=== PATIENT | female | born 1960 | race African-American/Black ===

== ENCOUNTER → 2016-10-02 | Outpatient (CLI) | payer MEDICARE, MEDICAID ==
[~2016-10-02] VITALS: Ht 162.6 cm; Wt 65.0 kg
[~2016-10-02] MED LIST: ASPI-556 PO; ATOR10TA84 PO; BUDE10.2 IH; FLUT12AE7 IH; HYDR25TA PO; IPRA4AER IH; IPRNEB IH; LOSA50TA37 PO; MONT10TA21 PO; OMEG1CAP12 PO; PRED10 PO
[2016-10-02 11:38] VITALS: BP 146/89
== END | disposition home or self-care (01) ==
LOC: SRCNTR 11:31
PROVIDERS: ATTEND Internal Medicine Critical Care Medicine
DX: J44.1 Chronic obstructive pulmonary disease with (acute) exacerbation (principal); I10 Essential (primary) hypertension; F17.210 Nicotine dependence, cigarettes, uncomplicated
CPT/HCPCS: G0463

== ENCOUNTER 2016-12-09 20:28 | Inpatient (IN) | payer MEDICARE, MEDICAID ==
[~2016-12-09] VITALS: Ht 162.6 cm; Wt 64.3 kg
[~2016-12-09 20:28] MED LIST changes: -FLUT12AE7 IH; -IPRNEB IH
[2016-12-09] MEDS ORDERED: FLUT12AE7 IH (21:10)
[2016-12-09] MEDS ORDERED: IPRATROPIUM BROMIDE 0.5 MG/2.5 ML NEB SOLUTION NEB ONE ×2 (21:15→22:00)
[2016-12-09] MEDS ORDERED: ALBUTEROL SULFATE 2.5 MG/0.5 ML NEB SOLUTION NEB ONE (21:15)
[2016-12-09] MEDS ORDERED: ALBUTEROL SULFATE 5 MG/ML 20 ML NEB SOLN [BULK] NEB ONE (22:00)
[2016-12-09] MEDS ORDERED: MethylPREDNISolone SOD SUCC 125 MG/2 ML VIAL IVP ONE (22:00)
[2016-12-09] MEDS ORDERED: 0.9% SODIUM CHLORIDE 5 ML NEB SOLUTION NEB ONE (22:12)
[2016-12-09 22:23] LABS: BASOPHILS % (AUTO) 0.4 % (0.0-2.0); EOSINOPHILS % (AUTO) 0.1 % (1.0-6.0); HEMATOCRIT 44.4 % (36-46); HEMOGLOBIN 14.3 g/dL (12.0-16.0); LYMPHOCYTES # (AUTO) 1.3 K/uL (1.0-4.8); LYMPHOCYTES % (AUTO) 14.7 % (22.0-44.0); MEAN CORPUSCULAR HEMOGLOBIN 29.2 pg (26.0-34.0); MEAN CORPUSCULAR HGB CONC 32.1 G/dL (31.0-37.0); MEAN CORPUSCULAR VOLUME 91 fL (80-100); MONOCYTES # (AUTO) 0.4 K/uL (0.1-1.0); MONOCYTES % (AUTO) 4.4 % (2.0-9.0); NEUTROPHILS % (AUTO) 80.4 % (40.0-70.0); PLATELET COUNT (AUTO) 390 K/uL (150-450); RED BLOOD CELL COUNT(AUTO) 4.88 MIL/uL (4.00-5.20); RED CELL DISTRIBUTION WIDTH 13.5 % (11.5-14.5); WHITE BLOOD COUNT (AUTO) 8.7 K/uL (4.5-11.0)
[2016-12-09 22:36] LABS: ANION GAP 10 mmol/L (8-16); CALCIUM, TOTAL 9.6 mg/dL (8.8-10.5); CARBON DIOXIDE 27 mmol/L (22-29); CHLORIDE 105 mmol/L (98-107); CREATININE 0.69 mg/dL (0.60-1.30); GLOMERULAR FILTR. RATE CALC > 60 mL/min (>60); POTASSIUM 3.9 mmol/L (3.5-5.1); SODIUM SERUM 142 mmol/L (136-145); UREA NITROGEN, BLOOD 16 mg/dL (7-18)
[2016-12-09 22:42] LABS: LACTIC ACID 1.2 mmol/L (0.4-2.0)
[2016-12-09] MEDS ORDERED: 0.9% SODIUM CHLORIDE 10 ML SYRINGE IVP PRN (22:45)
[2016-12-09] MEDS ORDERED: ACETAMINOPHEN 325 MG TABLET PO PRN (22:45)
[2016-12-09] MEDS ORDERED: ONDANSETRON HCL 4 MG/2 ML VIAL IVP PRN (22:45)
[2016-12-09 22:48] LABS: B-TYPE NATRIURETIC PEPTIDE 44 pg/mL (0-100)
[2016-12-09 22:49] LABS: ALANINE AMINOTRANSFERASE 25 U/L (12-78); ALBUMIN 3.9 g/dL (3.4-5.0); ASPARTATE AMINOTRANSFERASE 24 U/L (15-37); BILIRUBIN,TOTAL 0.2 mg/dL (0.1-1.0); TOTAL PROTEIN, SERUM 8.2 g/dL (6.4-8.2)
[2016-12-09] MEDS ORDERED: ALBUTEROL SULFATE 2.5 MG/0.5 ML NEB SOLUTION NEB SCH (23:00)
[2016-12-09] MEDS ORDERED: IPRATROPIUM BROMIDE 0.5 MG/2.5 ML NEB SOLUTION NEB SCH (23:00)
[2016-12-09 23:20] VITALS: BP 152/97
[2016-12-10] MEDS ORDERED: 0.9% SODIUM CHLORIDE 10 ML SYRINGE IVP PRN
[2016-12-10] MEDS: IPRATROPIUM BROMIDE 0.5 MG/2.5 ML NEB SOLUTION NEB SCH ×4 (02:42→19:58)
[2016-12-10] MEDS: ALBUTEROL SULFATE 2.5 MG/0.5 ML NEB SOLUTION NEB SCH ×4 (02:42→19:58)
[2016-12-10 03:52] LABS: APPEARANCE,URINE CLEAR (CLEAR); GLUCOSE, URINE (UA) NEGATIVE (NEGATIVE); KETONES,URINE NEGATIVE (NEGATIVE); LEUKOCYTE ESTERASE ,URINE NEGATIVE (NEGATIVE); OCCULT BLOOD,URINE TRACE (NEGATIVE); PROTEIN,URINE POS 1+ (NEGATIVE)
[2016-12-10 04:04] LABS: RBC,URINE 0-2 /HPF (0-2); SQUAMOUS EPITHELIAL CELL,UR Rare /LPF (None Seen); WBC,URINE 0-2 /HPF (0-5)
[2016-12-10 04:31] VITALS: BP 151/74
[2016-12-10 06:04] LABS: BASOPHILS % (AUTO) 0.3 % (0.0-2.0); EOSINOPHILS % (AUTO) 0 % (1.0-6.0); HEMATOCRIT 42.7 % (36-46); HEMOGLOBIN 13.8 g/dL (12.0-16.0); LYMPHOCYTES # (AUTO) 0.7 K/uL (1.0-4.8); LYMPHOCYTES % (AUTO) 10.6 % (22.0-44.0); MEAN CORPUSCULAR HEMOGLOBIN 29.8 pg (26.0-34.0); MEAN CORPUSCULAR HGB CONC 32.4 G/dL (31.0-37.0); MEAN CORPUSCULAR VOLUME 92 fL (80-100); MONOCYTES # (AUTO) 0.1 K/uL (0.1-1.0); MONOCYTES % (AUTO) 1.1 % (2.0-9.0); NEUTROPHILS # (AUTO) 5.8 K/uL (1.8-7.7); PLATELET COUNT (AUTO) 372 K/uL (150-450); RED BLOOD CELL COUNT(AUTO) 4.65 MIL/uL (4.00-5.20); RED CELL DISTRIBUTION WIDTH 13.1 % (11.5-14.5); WHITE BLOOD COUNT (AUTO) 6.6 K/uL (4.5-11.0)
[2016-12-10 06:54] LABS: ANION GAP 9 mmol/L (8-16); CALCIUM, TOTAL 9.4 mg/dL (8.8-10.5); CARBON DIOXIDE 29 mmol/L (22-29); CHLORIDE 102 mmol/L (98-107); CREATININE 0.77 mg/dL (0.60-1.30); GLOMERULAR FILTR. RATE CALC > 60 mL/min (>60); POTASSIUM 4.3 mmol/L (3.5-5.1); SODIUM SERUM 140 mmol/L (136-145); UREA NITROGEN, BLOOD 16 mg/dL (7-18)
[2016-12-10 08:07] VITALS: BP 138/101
[2016-12-10] MEDS: MONTELUKAST SODIUM 10 MG TABLET PO SCH (08:35)
[2016-12-10] MEDS: HYDROCHLOROTHIAZIDE 25 MG TABLET PO SCH (08:35)
[2016-12-10] MEDS: LOSARTAN POTASSIUM 50 MG TABLET PO SCH (08:35)
[2016-12-10] MEDS: ASPIRIN 81 MG EC TABLET PO SCH (08:35)
[2016-12-10] MEDS: ATORVASTATIN CALCIUM 10 MG TABLET PO SCH (08:35)
[2016-12-10] MEDS: FISH OIL/OMEGA-3 FATTY ACIDS 500 MG CAPSULE PO SCH (08:35)
[2016-12-10] MEDS: MethylPREDNISolone SOD SUCC 125 MG/2 ML VIAL IVP SCH ×2 (08:36→16:31)
[2016-12-10] MEDS ORDERED: FISH OIL/OMEGA-3 FATTY ACIDS 500 MG CAPSULE PO SCH (09:00)
[2016-12-10 11:44] VITALS: BP 154/89
[2016-12-10] MEDS: GuaiFENesin/D-METHORPHAN/PHENYLEPH 5 ML LIQUID ORAL.SYG PO PRN ×2 (13:49→21:49)
[2016-12-10 16:16] VITALS: BP 136/78
[2016-12-10 19:27] VITALS: BP 142/85
[2016-12-10] MEDS ORDERED: IOVERSOL 350 MG/ML 100 ML VIAL ONE (23:58)
[2016-12-11] VITALS (7 sets, daily range): BP systolic 139–165; BP diastolic 81–94
[2016-12-11] MEDS: MethylPREDNISolone SOD SUCC 125 MG/2 ML VIAL IVP SCH ×3 (00:10→16:53)
[2016-12-11] MEDS: ALBUTEROL SULFATE 2.5 MG/0.5 ML NEB SOLUTION NEB SCH ×4 (01:11→20:27)
[2016-12-11] MEDS: IPRATROPIUM BROMIDE 0.5 MG/2.5 ML NEB SOLUTION NEB SCH ×4 (01:12→20:27)
[2016-12-11 06:18] LABS: BASOPHILS % (AUTO) 0.2 % (0.0-2.0); EOSINOPHILS % (AUTO) 0 % (1.0-6.0); HEMATOCRIT 42.8 % (36-46); HEMOGLOBIN 13.6 g/dL (12.0-16.0); LYMPHOCYTES # (AUTO) 0.8 K/uL (1.0-4.8); MEAN CORPUSCULAR HEMOGLOBIN 29.2 pg (26.0-34.0); MEAN CORPUSCULAR HGB CONC 31.7 G/dL (31.0-37.0); MEAN CORPUSCULAR VOLUME 92 fL (80-100); MONOCYTES # (AUTO) 0.3 K/uL (0.1-1.0); MONOCYTES % (AUTO) 2.8 % (2.0-9.0); NEUTROPHILS # (AUTO) 8.3 K/uL (1.8-7.7); PLATELET COUNT (AUTO) 399 K/uL (150-450); RED BLOOD CELL COUNT(AUTO) 4.65 MIL/uL (4.00-5.20); RED CELL DISTRIBUTION WIDTH 13.1 % (11.5-14.5); WHITE BLOOD COUNT (AUTO) 9.4 K/uL (4.5-11.0)
[2016-12-11 06:30] LABS: HEMOGLOBIN A1C 5.4 % (4.5-6.2)
[2016-12-11 06:46] LABS: ANION GAP 8 mmol/L (8-16); CALCIUM, TOTAL 9.5 mg/dL (8.8-10.5); CARBON DIOXIDE 30 mmol/L (22-29); CHLORIDE 105 mmol/L (98-107); CHOL/HDL RATIO 2.6 (3.9-5.7); CREATININE 0.74 mg/dL (0.60-1.30); GLOMERULAR FILTR. RATE CALC > 60 mL/min (>60); POTASSIUM 3.9 mmol/L (3.5-5.1); SODIUM SERUM 143 mmol/L (136-145); UREA NITROGEN, BLOOD 15 mg/dL (7-18)
[2016-12-11] MEDS: GuaiFENesin/D-METHORPHAN/PHENYLEPH 5 ML LIQUID ORAL.SYG PO PRN ×2 (08:35→17:01)
[2016-12-11] MEDS: LOSARTAN POTASSIUM 50 MG TABLET PO SCH (08:36)
[2016-12-11] MEDS: ASPIRIN 81 MG EC TABLET PO SCH (08:36)
[2016-12-11] MEDS: ATORVASTATIN CALCIUM 10 MG TABLET PO SCH (08:36)
[2016-12-11] MEDS: LEVOFLOXACIN 500 MG TABLET PO SCH (08:37)
[2016-12-11] MEDS: HYDROCHLOROTHIAZIDE 25 MG TABLET PO SCH (08:37)
[2016-12-11] MEDS: FISH OIL/OMEGA-3 FATTY ACIDS 500 MG CAPSULE PO SCH (08:37)
[2016-12-11] MEDS: MONTELUKAST SODIUM 10 MG TABLET PO SCH (08:39)
[2016-12-11 11:40] LABS: PROTHROMBIN TIME 10.1 SEC (9.4-11.6)
[2016-12-11] MEDS: IPRATROPIUM BROMIDE 0.5 MG/2.5 ML NEB SOLUTION NEB PRN (12:53)
[2016-12-11] MEDS: ALBUTEROL SULFATE 2.5 MG/0.5 ML NEB SOLUTION NEB PRN (12:53)
[2016-12-11] MEDS: BENZONATATE 100 MG CAPSULE PO SCH (16:54)
[2016-12-12] MEDS: BENZONATATE 100 MG CAPSULE PO SCH ×3 (00:19→16:11)
[2016-12-12] MEDS: MethylPREDNISolone SOD SUCC 125 MG/2 ML VIAL IVP SCH ×4 (00:24→20:49)
[2016-12-12] MEDS: IPRATROPIUM BROMIDE 0.5 MG/2.5 ML NEB SOLUTION NEB SCH ×4 (02:20→20:40)
[2016-12-12] MEDS: ALBUTEROL SULFATE 2.5 MG/0.5 ML NEB SOLUTION NEB SCH ×4 (02:20→20:40)
[2016-12-12 04:45] VITALS: BP 151/91
[2016-12-12] MEDS ORDERED: MIDAZOLAM HCL 2 MG/2 ML VIAL ONE (08:01)
[2016-12-12] MEDS ORDERED: FentaNYL CITRATE-PF 100 MCG/2 ML VIAL ONE (08:01)
[2016-12-12] MEDS ORDERED: LIDOCAINE HCL/PF 1% 30 ML VIAL ONE (08:01)
[2016-12-12] MEDS: ATORVASTATIN CALCIUM 10 MG TABLET PO SCH (09:43)
[2016-12-12] MEDS: LOSARTAN POTASSIUM 50 MG TABLET PO SCH (09:43)
[2016-12-12] MEDS: HYDROCHLOROTHIAZIDE 25 MG TABLET PO SCH (09:43)
[2016-12-12] MEDS: ASPIRIN 81 MG EC TABLET PO SCH (09:43)
[2016-12-12] MEDS: LEVOFLOXACIN 500 MG TABLET PO SCH (09:43)
[2016-12-12] MEDS: GuaiFENesin/D-METHORPHAN/PHENYLEPH 5 ML LIQUID ORAL.SYG PO PRN (09:50)
[2016-12-12] MEDS: MONTELUKAST SODIUM 10 MG TABLET PO SCH (09:50)
[2016-12-12] MEDS: FISH OIL/OMEGA-3 FATTY ACIDS 500 MG CAPSULE PO SCH (09:50)
[2016-12-12 11:34] VITALS: BP 150/87
[2016-12-12 15:10] VITALS: BP 141/80
[2016-12-12] MEDS: HYDROCODONE/CHLORPHEN POLIS 10-8 MG/5 ML ORAL.SYG PO PRN (16:14)
[2016-12-12 19:43] VITALS: BP 154/83
[2016-12-13] VITALS: BP 157/79
[2016-12-13] MEDS: BENZONATATE 100 MG CAPSULE PO SCH ×4 (00:32→23:42)
[2016-12-13] MEDS: ALBUTEROL SULFATE 2.5 MG/0.5 ML NEB SOLUTION NEB SCH ×4 (02:00→19:46)
[2016-12-13] MEDS: IPRATROPIUM BROMIDE 0.5 MG/2.5 ML NEB SOLUTION NEB SCH ×4 (02:00→19:46)
[2016-12-13 04:00] VITALS: BP 153/87
[2016-12-13] MEDS: MethylPREDNISolone SOD SUCC 125 MG/2 ML VIAL IVP SCH ×3 (05:37→17:31)
[2016-12-13 07:20] VITALS: BP 145/88
[2016-12-13] MEDS: HYDROCODONE/CHLORPHEN POLIS 10-8 MG/5 ML ORAL.SYG PO PRN (08:05)
[2016-12-13] MEDS: LOSARTAN POTASSIUM 50 MG TABLET PO SCH (08:06)
[2016-12-13] MEDS: FISH OIL/OMEGA-3 FATTY ACIDS 500 MG CAPSULE PO SCH (08:06)
[2016-12-13] MEDS: MONTELUKAST SODIUM 10 MG TABLET PO SCH (08:06)
[2016-12-13] MEDS: HYDROCHLOROTHIAZIDE 25 MG TABLET PO SCH (08:06)
[2016-12-13] MEDS: ASPIRIN 81 MG EC TABLET PO SCH (08:07)
[2016-12-13] MEDS: LEVOFLOXACIN 500 MG TABLET PO SCH (08:07)
[2016-12-13] MEDS: ATORVASTATIN CALCIUM 10 MG TABLET PO SCH (08:07)
[2016-12-13 11:20] VITALS: BP 143/56
[2016-12-13 15:32] VITALS: BP 142/62
[2016-12-13] MEDS: GuaiFENesin/D-METHORPHAN/PHENYLEPH 5 ML LIQUID ORAL.SYG PO PRN (15:32)
[2016-12-13 20:22] VITALS: BP 148/88
[2016-12-13] MEDS: MethylPREDNISolone SOD SUCC 40 MG/ML VIAL IVP SCH (23:41)
[2016-12-14] VITALS (7 sets, daily range): BP systolic 149–163; BP diastolic 82–97
[2016-12-14] MEDS: ALBUTEROL SULFATE 2.5 MG/0.5 ML NEB SOLUTION NEB SCH ×4 (01:52→19:53)
[2016-12-14] MEDS: IPRATROPIUM BROMIDE 0.5 MG/2.5 ML NEB SOLUTION NEB SCH ×4 (01:52→19:53)
[2016-12-14] MEDS: MethylPREDNISolone SOD SUCC 40 MG/ML VIAL IVP SCH ×4 (05:34→23:02)
[2016-12-14] MEDS: LEVOFLOXACIN 500 MG TABLET PO SCH (07:48)
[2016-12-14] MEDS: FISH OIL/OMEGA-3 FATTY ACIDS 500 MG CAPSULE PO SCH (07:48)
[2016-12-14] MEDS: MONTELUKAST SODIUM 10 MG TABLET PO SCH (07:48)
[2016-12-14] MEDS: LOSARTAN POTASSIUM 50 MG TABLET PO SCH (07:48)
[2016-12-14] MEDS: HYDROCODONE/CHLORPHEN POLIS 10-8 MG/5 ML ORAL.SYG PO PRN (07:48)
[2016-12-14] MEDS: BENZONATATE 100 MG CAPSULE PO SCH ×3 (07:49→23:02)
[2016-12-14] MEDS: ATORVASTATIN CALCIUM 10 MG TABLET PO SCH (07:49)
[2016-12-14] MEDS: ASPIRIN 81 MG EC TABLET PO SCH (07:49)
[2016-12-14] MEDS: HYDROCHLOROTHIAZIDE 25 MG TABLET PO SCH (07:50)
[2016-12-14] MEDS: ZOLPIDEM TARTRATE 5 MG TABLET PO PRN (23:03)
[2016-12-15] VITALS (8 sets, daily range): BP systolic 130–161; BP diastolic 72–102
[2016-12-15] MEDS: IPRATROPIUM BROMIDE 0.5 MG/2.5 ML NEB SOLUTION NEB SCH ×4 (03:00→19:30)
[2016-12-15] MEDS: ALBUTEROL SULFATE 2.5 MG/0.5 ML NEB SOLUTION NEB SCH ×4 (03:01→19:30)
[2016-12-15] MEDS: MethylPREDNISolone SOD SUCC 40 MG/ML VIAL IVP SCH ×4 (05:19→22:50)
[2016-12-15] MEDS: BENZONATATE 100 MG CAPSULE PO SCH ×3 (08:00→22:49)
[2016-12-15] MEDS: LEVOFLOXACIN 500 MG TABLET PO SCH (14:09)
[2016-12-15] MEDS: LOSARTAN POTASSIUM 50 MG TABLET PO SCH (14:09)
[2016-12-15] MEDS: ATORVASTATIN CALCIUM 10 MG TABLET PO SCH (14:10)
[2016-12-15] MEDS: MONTELUKAST SODIUM 10 MG TABLET PO SCH (14:10)
[2016-12-15] MEDS: HYDROCHLOROTHIAZIDE 25 MG TABLET PO SCH (14:10)
[2016-12-15] MEDS: FISH OIL/OMEGA-3 FATTY ACIDS 500 MG CAPSULE PO SCH (14:10)
[2016-12-15] MEDS: ASPIRIN 81 MG EC TABLET PO SCH (14:11)
[2016-12-15] MEDS: GuaiFENesin/D-METHORPHAN/PHENYLEPH 5 ML LIQUID ORAL.SYG PO PRN (14:21)
[2016-12-15] MEDS ORDERED: ENALAPRILAT DIHYDRATE 1.25 MG/ML VIAL IVP PRN (20:15)
[2016-12-15] MEDS: ZOLPIDEM TARTRATE 5 MG TABLET PO PRN (22:49)
[2016-12-16] MEDS: IPRATROPIUM BROMIDE 0.5 MG/2.5 ML NEB SOLUTION NEB SCH ×4 (02:11→19:55)
[2016-12-16] MEDS: ALBUTEROL SULFATE 2.5 MG/0.5 ML NEB SOLUTION NEB SCH ×4 (02:11→19:55)
[2016-12-16 04:36] VITALS: BP 157/89
[2016-12-16] MEDS: MethylPREDNISolone SOD SUCC 40 MG/ML VIAL IVP SCH ×2 (04:56→11:41)
[2016-12-16 08:08] VITALS: BP 156/96
[2016-12-16] MEDS: ASPIRIN 81 MG EC TABLET PO SCH (09:00)
[2016-12-16] MEDS ORDERED: FentaNYL CITRATE-PF 100 MCG/2 ML VIAL ONE (09:34)
[2016-12-16] MEDS ORDERED: MIDAZOLAM HCL 2 MG/2 ML VIAL ONE (09:35)
[2016-12-16] MEDS ORDERED: LIDOCAINE HCL/PF 1% 30 ML VIAL ONE (09:35)
[2016-12-16] MEDS ORDERED: FentaNYL CITRATE-PF 100 MCG/2 ML VIAL IVP ONE (10:28)
[2016-12-16] MEDS ORDERED: MIDAZOLAM HCL 2 MG/2 ML VIAL IVP ONE (10:29)
[2016-12-16] MEDS: BENZONATATE 100 MG CAPSULE PO SCH ×2 (11:28→17:08)
[2016-12-16] MEDS: ATORVASTATIN CALCIUM 10 MG TABLET PO SCH (11:29)
[2016-12-16] MEDS: FISH OIL/OMEGA-3 FATTY ACIDS 500 MG CAPSULE PO SCH (11:29)
[2016-12-16] MEDS: MONTELUKAST SODIUM 10 MG TABLET PO SCH (11:29)
[2016-12-16] MEDS: HYDROCHLOROTHIAZIDE 25 MG TABLET PO SCH (11:30)
[2016-12-16] MEDS: HYDROCODONE/CHLORPHEN POLIS 10-8 MG/5 ML ORAL.SYG PO PRN ×2 (11:30→17:09)
[2016-12-16 11:33] VITALS: BP 148/79
[2016-12-16] MEDS: LEVOFLOXACIN 500 MG TABLET PO SCH (11:37)
[2016-12-16] MEDS: LOSARTAN POTASSIUM 50 MG TABLET PO SCH (11:37)
[2016-12-16] MEDS: IPRATROPIUM BROMIDE 0.5 MG/2.5 ML NEB SOLUTION NEB PRN (12:16)
[2016-12-16] MEDS: ALBUTEROL SULFATE 2.5 MG/0.5 ML NEB SOLUTION NEB PRN (12:17)
[2016-12-16 15:35] VITALS: BP 136/74
[2016-12-16] MEDS: PredniSONE 20 MG TABLET PO SCH (17:08)
[2016-12-16] MEDS: HYDROCODONE/ACETAMINOPHEN 5-325 MG TABLET PO PRN (18:34)
[2016-12-16 19:52] VITALS: BP 147/96
[2016-12-16 23:14] VITALS: BP 155/83
[2016-12-17] MEDS: BENZONATATE 100 MG CAPSULE PO SCH ×2 (00:13→08:15)
[2016-12-17] MEDS: HYDROCODONE/ACETAMINOPHEN 5-325 MG TABLET PO PRN ×2 (00:14→08:13)
[2016-12-17] MEDS: IPRATROPIUM BROMIDE 0.5 MG/2.5 ML NEB SOLUTION NEB SCH ×2 (02:51→07:32)
[2016-12-17] MEDS: ALBUTEROL SULFATE 2.5 MG/0.5 ML NEB SOLUTION NEB SCH ×2 (02:51→07:32)
[2016-12-17 05:21] VITALS: BP 155/90
[2016-12-17 07:37] VITALS: BP 149/97
[2016-12-17] MEDS: MONTELUKAST SODIUM 10 MG TABLET PO SCH (08:15)
[2016-12-17] MEDS: ASPIRIN 81 MG EC TABLET PO SCH (08:15)
[2016-12-17] MEDS: LOSARTAN POTASSIUM 50 MG TABLET PO SCH (08:16)
[2016-12-17] MEDS: ATORVASTATIN CALCIUM 10 MG TABLET PO SCH (08:16)
[2016-12-17] MEDS: HYDROCHLOROTHIAZIDE 25 MG TABLET PO SCH (08:16)
[2016-12-17] MEDS: LEVOFLOXACIN 500 MG TABLET PO SCH (08:16)
[2016-12-17] MEDS: FISH OIL/OMEGA-3 FATTY ACIDS 500 MG CAPSULE PO SCH (08:16)
[2016-12-17] MEDS: PredniSONE 20 MG TABLET PO SCH (08:17)
[2016-12-17 11:48] VITALS: BP 143/84
== END 2016-12-17 13:08 | disposition home or self-care (01) | DRG 193 ==
LOC: EMS 20:31 → 6N 22:55
PROVIDERS: ADMIT Family Medicine; ATTEND Family Medicine
PROC: 0BBG3ZX Excision of Left Upper Lung Lobe, Percutaneous Approach, Diagnostic (ICD-10-PCS; principal; 2016-12-16)
DX: J18.9 Pneumonia, unspecified organism (principal); J96.20 Acute and chronic respiratory failure, unspecified whether with hypoxia or hypercapnia; J44.1 Chronic obstructive pulmonary disease with (acute) exacerbation; J44.0 Chronic obstructive pulmonary disease with (acute) lower respiratory infection; J93.9 Pneumothorax, unspecified; Z79.899 Other long term (current) drug therapy; J45.909 Unspecified asthma, uncomplicated; I10 Essential (primary) hypertension; F17.210 Nicotine dependence, cigarettes, uncomplicated; E78.5 Hyperlipidemia, unspecified; Z71.6 Tobacco abuse counseling; Z85.43 Personal history of malignant neoplasm of ovary; Z79.82 Long term (current) use of aspirin; Z79.51 Long term (current) use of inhaled steroids
CPT/HCPCS: 32405; 71260; 83036; 83605; 83735; 84145; 87040; 87070; 87205; 88305; 88312; 93005; 94640; 94644; 96374; 99285; J2250; J2920; J2930; J3010; J3490

== ENCOUNTER → 2016-12-30 | Outpatient (CLI) | payer MEDICARE, MEDICAID ==
[~2016-12-30] VITALS: Ht 162.6 cm; Wt 62.0 kg
[~2016-12-30] MED LIST changes: +FLUT12AE7 IH
[2016-12-30 13:18] VITALS: BP 117/57
== END | disposition home or self-care (01) ==
LOC: SRCNTR 13:16
PROVIDERS: ATTEND Internal Medicine Critical Care Medicine
DX: I10 Essential (primary) hypertension (principal); J44.1 Chronic obstructive pulmonary disease with (acute) exacerbation; F17.210 Nicotine dependence, cigarettes, uncomplicated
CPT/HCPCS: G0463

== ENCOUNTER → 2017-01-15 | Outpatient (CLI) | payer MEDICARE, MEDICAID ==
[~2017-01-15] MED LIST changes: -ASPI-556 PO; -FLUT12AE7 IH
== END | disposition home or self-care (01) ==
LOC: RADMN 12:52
PROVIDERS: ATTEND Internal Medicine Critical Care Medicine
DX: R91.8 Other nonspecific abnormal finding of lung field (principal); J85.0 Gangrene and necrosis of lung; A15.9 Respiratory tuberculosis unspecified; B38.2 Pulmonary coccidioidomycosis, unspecified; A15.0 Tuberculosis of lung; I70.0 Atherosclerosis of aorta; I25.10 Atherosclerotic heart disease of native coronary artery without angina pectoris; M47.814 Spondylosis without myelopathy or radiculopathy, thoracic region; K44.9 Diaphragmatic hernia without obstruction or gangrene; E07.89 Other specified disorders of thyroid
CPT/HCPCS: 71250

== ENCOUNTER → 2017-01-29 | Outpatient (CLI) | payer MEDICARE, MEDICAID ==
[~2017-01-29] VITALS: Ht 162.6 cm; Wt 64.5 kg
[2017-01-29 11:53] VITALS: BP 150/86
== END | disposition home or self-care (01) ==
LOC: SRCNTR 11:46
PROVIDERS: ATTEND Internal Medicine Critical Care Medicine
DX: I10 Essential (primary) hypertension (principal); J44.1 Chronic obstructive pulmonary disease with (acute) exacerbation; F17.210 Nicotine dependence, cigarettes, uncomplicated
CPT/HCPCS: G0463

== ENCOUNTER → 2017-01-29 | Outpatient (CLI) | payer MEDICARE, MEDICAID ==
[2017-01-29 13:30] LABS: BASOPHILS % (AUTO) 0.6 % (0.0-2.0); EOSINOPHILS % (AUTO) 6.4 % (1.0-6.0); HEMATOCRIT 40.2 % (36-46); HEMOGLOBIN 12.8 g/dL (12.0-16.0); LYMPHOCYTES # (AUTO) 1.4 K/uL (1.0-4.8); LYMPHOCYTES % (AUTO) 21.1 % (22.0-44.0); MEAN CORPUSCULAR HEMOGLOBIN 28.9 pg (26.0-34.0); MEAN CORPUSCULAR HGB CONC 31.9 G/dL (31.0-37.0); MEAN CORPUSCULAR VOLUME 91 fL (80-100); MONOCYTES # (AUTO) 0.4 K/uL (0.1-1.0); MONOCYTES % (AUTO) 5.8 % (2.0-9.0); NEUTROPHILS # (AUTO) 4.3 K/uL (1.8-7.7); NEUTROPHILS % (AUTO) 66.1 % (40.0-70.0); PLATELET COUNT (AUTO) 324 K/uL (150-450); RED BLOOD CELL COUNT(AUTO) 4.43 MIL/uL (4.00-5.20); RED CELL DISTRIBUTION WIDTH 14.1 % (11.5-14.5); WHITE BLOOD COUNT (AUTO) 6.6 K/uL (4.5-11.0)
[2017-01-29 13:48] LABS: ALANINE AMINOTRANSFERASE 32 U/L (12-78); ALBUMIN 3.6 g/dL (3.4-5.0); ANION GAP 9 mmol/L (8-16); ASPARTATE AMINOTRANSFERASE 32 U/L (15-37); BILIRUBIN,TOTAL 0.6 mg/dL (0.1-1.0); CALCIUM, TOTAL 9.3 mg/dL (8.8-10.5); CARBON DIOXIDE 29 mmol/L (22-29); CHLORIDE 104 mmol/L (98-107); CREATININE 0.72 mg/dL (0.60-1.30); GLOMERULAR FILTR. RATE CALC > 60 mL/min (>60); POTASSIUM 3.9 mmol/L (3.5-5.1); SODIUM SERUM 142 mmol/L (136-145); TOTAL PROTEIN, SERUM 7.4 g/dL (6.4-8.2); UREA NITROGEN, BLOOD 9 mg/dL (7-18)
== END | disposition home or self-care (01) ==
LOC: LABPV 13:08
PROVIDERS: ATTEND Internal Medicine Critical Care Medicine
DX: J44.9 Chronic obstructive pulmonary disease, unspecified (principal); A15.9 Respiratory tuberculosis unspecified
CPT/HCPCS: 87389

== ENCOUNTER → 2017-03-02 | Outpatient (CLI) | payer MEDICARE, MEDICAID ==
[~2017-03-02] VITALS: Ht 162.6 cm; Wt 64.5 kg
[2017-03-02 13:29] VITALS: BP 110/62
== END | disposition home or self-care (01) ==
LOC: SRCNTR 13:14
PROVIDERS: ATTEND Internal Medicine Critical Care Medicine
DX: I10 Essential (primary) hypertension (principal); J44.1 Chronic obstructive pulmonary disease with (acute) exacerbation; A31.2 Disseminated mycobacterium avium-intracellulare complex (DMAC); Z87.891 Personal history of nicotine dependence
CPT/HCPCS: G0463

== ENCOUNTER → 2017-04-07 | Outpatient (CLI) | payer MEDICARE, MEDICAID ==
[~2017-04-07] MED LIST changes: +AZIT250T6 PO; -BUDE10.2 IH
[2017-04-07 13:12] LABS: ALBUMIN 3.9 g/dL (3.4-5.0); BILIRUBIN,TOTAL 0.4 mg/dL (0.1-1.0); TOTAL PROTEIN, SERUM 7.4 g/dL (6.4-8.2)
[2017-04-07 13:13] LABS: BILIRUBIN,DIRECT 0.1 mg/dL (0.00-0.20)
== END | disposition home or self-care (01) ==
LOC: LABPV 09:51
PROVIDERS: ATTEND Internal Medicine Critical Care Medicine
DX: R94.5 Abnormal results of liver function studies (principal)

== ENCOUNTER → 2017-04-09 | Outpatient (CLI) | payer MEDICARE, MEDICAID ==
[~2017-04-09] VITALS: Ht 162.6 cm; Wt 62.8 kg
[2017-04-09 11:43] VITALS: BP 134/84
== END | disposition home or self-care (01) ==
LOC: SRCNTR 11:39
PROVIDERS: ATTEND Internal Medicine Critical Care Medicine
DX: I10 Essential (primary) hypertension (principal); J44.1 Chronic obstructive pulmonary disease with (acute) exacerbation; F17.210 Nicotine dependence, cigarettes, uncomplicated; A31.2 Disseminated mycobacterium avium-intracellulare complex (DMAC)
CPT/HCPCS: G0463

== ENCOUNTER → 2017-06-01 | Outpatient (CLI) | payer MEDICARE, MEDICAID ==
[2017-06-01 17:30] LABS: ALANINE AMINOTRANSFERASE 22 U/L (12-78); ALBUMIN 4.1 g/dL (3.4-5.0); ASPARTATE AMINOTRANSFERASE 27 U/L (15-37); BILIRUBIN,TOTAL 0.4 mg/dL (0.1-1.0); TOTAL PROTEIN, SERUM 7.3 g/dL (6.4-8.2)
[2017-06-01 17:31] LABS: BILIRUBIN,DIRECT < 0.05 mg/dL (0.00-0.20)
== END | disposition home or self-care (01) ==
LOC: LABPV 13:34
PROVIDERS: ATTEND Internal Medicine Critical Care Medicine
DX: A31.2 Disseminated mycobacterium avium-intracellulare complex (DMAC) (principal)

== ENCOUNTER → 2017-06-05 | Outpatient (CLI) | payer MEDICARE, MEDICAID ==
[~2017-06-05] MED LIST changes: -AZIT250T6 PO; +AZIT250T9 PO
== END | disposition home or self-care (01) ==
LOC: RADMN 12:53
PROVIDERS: ATTEND Internal Medicine Critical Care Medicine
DX: J44.9 Chronic obstructive pulmonary disease, unspecified (principal); R91.8 Other nonspecific abnormal finding of lung field; I70.0 Atherosclerosis of aorta; I25.10 Atherosclerotic heart disease of native coronary artery without angina pectoris; M46.00 Spinal enthesopathy, site unspecified
CPT/HCPCS: 71250

== ENCOUNTER → 2017-06-10 | Outpatient (CLI) | payer MEDICARE, MEDICAID ==
[~2017-06-10] VITALS: Ht 162.6 cm; Wt 64.0 kg
[2017-06-10 13:45] VITALS: BP 122/68
== END | disposition home or self-care (01) ==
LOC: SRCNTR 13:25
PROVIDERS: ATTEND Internal Medicine Critical Care Medicine
DX: I10 Essential (primary) hypertension (principal); J44.1 Chronic obstructive pulmonary disease with (acute) exacerbation; A31.2 Disseminated mycobacterium avium-intracellulare complex (DMAC); F17.210 Nicotine dependence, cigarettes, uncomplicated
CPT/HCPCS: G0463

== ENCOUNTER → 2017-08-18 | Outpatient (CLI) | payer MEDICARE, MEDICAID ==
[~2017-08-18] VITALS: Ht 162.6 cm; Wt 64.0 kg
[2017-08-18 11:26] VITALS: BP 135/75
== END | disposition home or self-care (01) ==
LOC: SRCNTR 11:17
PROVIDERS: ATTEND Internal Medicine Critical Care Medicine
DX: J44.1 Chronic obstructive pulmonary disease with (acute) exacerbation (principal); I10 Essential (primary) hypertension; F17.210 Nicotine dependence, cigarettes, uncomplicated; A31.9 Mycobacterial infection, unspecified
CPT/HCPCS: G0463

== ENCOUNTER → 2017-11-04 | Outpatient (CLI) | payer MEDICARE, MEDICAID ==
[2017-11-04 13:28] LABS: ALBUMIN 3.9 g/dL (3.4-5.0); BILIRUBIN,TOTAL 0.4 mg/dL (0.1-1.0)
[2017-11-04 13:29] LABS: BILIRUBIN,DIRECT 0.1 mg/dL (0.00-0.20)
== END | disposition home or self-care (01) ==
LOC: LABPV 11:26
PROVIDERS: ATTEND Internal Medicine Critical Care Medicine
DX: A31.0 Pulmonary mycobacterial infection (principal)

== ENCOUNTER → 2017-11-05 | Outpatient (CLI) | payer MEDICARE | END | disposition home or self-care (01) | LOC: RADMN 10:45 | PROVIDERS: ATTEND Internal Medicine Critical Care Medicine | DX: A31.0 Pulmonary mycobacterial infection (principal); I70.0 Atherosclerosis of aorta; E04.1 Nontoxic single thyroid nodule | CPT/HCPCS: 71250 ==

== ENCOUNTER → 2017-11-13 | Outpatient (CLI) | payer MEDICARE, MEDICAID ==
[~2017-11-13] VITALS: Ht 165.1 cm; Wt 63.5 kg
[2017-11-13 09:09] VITALS: BP 147/80
== END | disposition home or self-care (01) ==
LOC: SRCNTR 09:08
PROVIDERS: ATTEND Internal Medicine Critical Care Medicine
DX: J44.1 Chronic obstructive pulmonary disease with (acute) exacerbation (principal); I10 Essential (primary) hypertension; A31.2 Disseminated mycobacterium avium-intracellulare complex (DMAC); F17.200 Nicotine dependence, unspecified, uncomplicated
CPT/HCPCS: G0463

== ENCOUNTER → 2018-01-27 | Outpatient (CLI) | payer MEDICARE, MEDICAID ==
[~2018-01-27] VITALS: Ht 162.6 cm; Wt 64.0 kg
[~2018-01-27] MED LIST changes: +ASPI81 PO; +BUDE10.2 IH
[2018-01-27 11:48] VITALS: BP 151/78
== END | disposition home or self-care (01) ==
LOC: SRCNTR 11:25
PROVIDERS: ATTEND Internal Medicine Critical Care Medicine
DX: J44.1 Chronic obstructive pulmonary disease with (acute) exacerbation (principal); I10 Essential (primary) hypertension; A31.2 Disseminated mycobacterium avium-intracellulare complex (DMAC); F17.200 Nicotine dependence, unspecified, uncomplicated
CPT/HCPCS: G0463

== ENCOUNTER → 2018-03-16 | Outpatient (CLI) | payer MEDICARE ==
[~2018-03-16] MED LIST changes: -AZIT250T9 PO; -PRED10 PO
[2018-03-16 12:37] LABS: ALANINE AMINOTRANSFERASE 32 U/L (12-78); ALBUMIN 3.9 g/dL (3.4-5.0); ALKALINE PHOSPHATASE 100 U/L (46-116); ASPARTATE AMINOTRANSFERASE 30 U/L (15-37); BILIRUBIN,TOTAL 0.3 mg/dL (0.1-1.0); TOTAL PROTEIN, SERUM 7.4 g/dL (6.4-8.2)
[2018-03-16 12:38] LABS: BILIRUBIN,DIRECT < 0.05 mg/dL (0.00-0.20)
== END | disposition home or self-care (01) ==
LOC: LABPV 10:08
PROVIDERS: ATTEND Internal Medicine Critical Care Medicine
DX: A31.0 Pulmonary mycobacterial infection (principal)

== ENCOUNTER → 2018-03-31 | Outpatient (CLI) | payer MEDICARE, MEDICAID ==
[~2018-03-31] VITALS: Ht 162.6 cm; Wt 63.0 kg
[2018-03-31 11:15] VITALS: BP 144/78
== END | disposition home or self-care (01) ==
LOC: SRCNTR 10:58
PROVIDERS: ATTEND Internal Medicine Critical Care Medicine
DX: J44.1 Chronic obstructive pulmonary disease with (acute) exacerbation (principal); A31.0 Pulmonary mycobacterial infection; I10 Essential (primary) hypertension; F17.200 Nicotine dependence, unspecified, uncomplicated
CPT/HCPCS: G0463

== ENCOUNTER → 2018-04-28 | Outpatient (CLI) | payer MEDICAID, MEDICARE | END | disposition home or self-care (01) | LOC: RADMN 12:16 | PROVIDERS: ATTEND Internal Medicine Critical Care Medicine | DX: J43.2 Centrilobular emphysema (principal); A31.0 Pulmonary mycobacterial infection; I10 Essential (primary) hypertension; E11.9 Type 2 diabetes mellitus without complications | CPT/HCPCS: 71250 ==

== ENCOUNTER → 2018-07-21 | Outpatient (CLI) | payer MEDICARE, OTHER ==
[~2018-07-21] MED LIST changes: +LOSA50TA25 PO; -LOSA50TA37 PO
[2018-07-21 12:10] LABS: ALBUMIN 3.7 g/dL (3.4-5.0); BILIRUBIN,DIRECT 0.1 mg/dL (0.00-0.20); BILIRUBIN,TOTAL 0.3 mg/dL (0.1-1.0); TOTAL PROTEIN, SERUM 7.3 g/dL (6.4-8.2)
== END | disposition home or self-care (01) ==
LOC: LABPV 10:43
PROVIDERS: ATTEND Internal Medicine Critical Care Medicine
DX: A31.9 Mycobacterial infection, unspecified (principal)

== ENCOUNTER → 2018-09-30 | Outpatient (CLI) | payer MEDICARE, OTHER ==
[~2018-09-30] VITALS: Ht 162.6 cm; Wt 63.0 kg
[~2018-09-30] MED LIST changes: -LOSA50TA25 PO; +LOSA50TA64 PO
[2018-09-30 14:02] VITALS: BP 172/81
== END | disposition home or self-care (01) ==
LOC: SRCNTR 13:57
PROVIDERS: ATTEND Internal Medicine Critical Care Medicine
DX: J44.9 Chronic obstructive pulmonary disease, unspecified (principal); I10 Essential (primary) hypertension; A31.2 Disseminated mycobacterium avium-intracellulare complex (DMAC); F17.200 Nicotine dependence, unspecified, uncomplicated
CPT/HCPCS: G0463

== ENCOUNTER → 2018-12-08 | Outpatient (CLI) | payer MEDICARE, OTHER ==
[~2018-12-08] VITALS: Ht 162.6 cm; Wt 63.0 kg
[2018-12-08 15:20] VITALS: BP 130/66
== END | disposition home or self-care (01) ==
LOC: SRCNTR 14:59
PROVIDERS: ATTEND Internal Medicine Critical Care Medicine
DX: J44.1 Chronic obstructive pulmonary disease with (acute) exacerbation (principal); I10 Essential (primary) hypertension; F17.200 Nicotine dependence, unspecified, uncomplicated
CPT/HCPCS: G0463

== ENCOUNTER → 2019-04-04 | Outpatient (CLI) | payer MEDICARE, OTHER | END | disposition home or self-care (01) | LOC: RADMN 12:57 | PROVIDERS: ATTEND Internal Medicine Critical Care Medicine | DX: J43.9 Emphysema, unspecified (principal) | CPT/HCPCS: 71250 ==

== ENCOUNTER → 2019-07-08 | Outpatient (CLI) | payer MEDICARE, OTHER ==
[~2019-07-08] VITALS: Ht 162.6 cm; Wt 65.0 kg
[2019-07-08 10:26] VITALS: BP 131/67
== END | disposition home or self-care (01) ==
LOC: SRCNTR 10:24
PROVIDERS: ATTEND Internal Medicine Critical Care Medicine
DX: I10 Essential (primary) hypertension (principal); J44.1 Chronic obstructive pulmonary disease with (acute) exacerbation; A31.2 Disseminated mycobacterium avium-intracellulare complex (DMAC); Z72.0 Tobacco use
CPT/HCPCS: G0463

== ENCOUNTER → 2019-09-12 | Outpatient (CLI) | payer MEDICARE, OTHER ==
[~2019-09-12] MED LIST changes: -MONT10TA21 PO
== END | disposition home or self-care (01) ==
LOC: RADMN 12:37
PROVIDERS: ATTEND Internal Medicine Critical Care Medicine
DX: J43.2 Centrilobular emphysema (principal); R91.1 Solitary pulmonary nodule; R91.8 Other nonspecific abnormal finding of lung field; J42 Unspecified chronic bronchitis; R54 Age-related physical debility; J98.8 Other specified respiratory disorders
CPT/HCPCS: 71250

== ENCOUNTER → 2019-10-05 | Outpatient (CLI) | payer MEDICARE, OTHER ==
[~2019-10-05] VITALS: Ht 162.6 cm; Wt 61.0 kg
[~2019-10-05] MED LIST changes: +ASPI-728 PO; -ASPI81 PO; +HYDR-1475 PO; -HYDR25TA PO; +LOSA-88 PO; -LOSA50TA64 PO
[2019-10-05 10:42] VITALS: BP 140/67
== END | disposition home or self-care (01) ==
LOC: SRCNTR 10:41
PROVIDERS: ATTEND Internal Medicine Critical Care Medicine
DX: J44.1 Chronic obstructive pulmonary disease with (acute) exacerbation (principal); A31.2 Disseminated mycobacterium avium-intracellulare complex (DMAC); I10 Essential (primary) hypertension; R91.8 Other nonspecific abnormal finding of lung field; F17.200 Nicotine dependence, unspecified, uncomplicated; Z79.82 Long term (current) use of aspirin; Z79.899 Other long term (current) drug therapy
CPT/HCPCS: G0463

== ENCOUNTER → 2021-09-20 | Outpatient (CLI) | payer MEDICARE, OTHER ==
[~2021-09-20] VITALS: Ht 160 cm; Wt 55.0 kg
[~2021-09-20] MED LIST changes: +ASPI-1450 PO; -ASPI-728 PO; -HYDR-1475 PO; +HYDR25TA2 PO; +LOSA-382 PO; -LOSA-88 PO
[2021-09-20 09:57] VITALS: BP 147/87
== END | disposition home or self-care (01) ==
LOC: SRCNTR 09:32
PROVIDERS: ATTEND Internal Medicine Critical Care Medicine
DX: J44.1 Chronic obstructive pulmonary disease with (acute) exacerbation (principal); I10 Essential (primary) hypertension; A31.2 Disseminated mycobacterium avium-intracellulare complex (DMAC); R91.8 Other nonspecific abnormal finding of lung field; F17.200 Nicotine dependence, unspecified, uncomplicated
CPT/HCPCS: G0463; Z7500

== ENCOUNTER → 2021-10-03 | Outpatient (CLI) | payer MEDICARE, OTHER | END | disposition home or self-care (01) | LOC: RADMN 12:51 | PROVIDERS: ATTEND Internal Medicine Critical Care Medicine | DX: M47.814 Spondylosis without myelopathy or radiculopathy, thoracic region (principal); I70.0 Atherosclerosis of aorta; M19.012 Primary osteoarthritis, left shoulder; M19.011 Primary osteoarthritis, right shoulder; J43.9 Emphysema, unspecified; R91.1 Solitary pulmonary nodule; C85.28 Mediastinal (thymic) large B-cell lymphoma, lymph nodes of multiple sites; J92.9 Pleural plaque without asbestos; A31.2 Disseminated mycobacterium avium-intracellulare complex (DMAC) | CPT/HCPCS: 71250 ==

== ENCOUNTER → 2021-11-13 | Outpatient (CLI) | payer MEDICARE, OTHER | END | disposition home or self-care (01) | LOC: LABPV 11:21 | PROVIDERS: ATTEND Internal Medicine Critical Care Medicine | DX: A31.0 Pulmonary mycobacterial infection (principal) | CPT/HCPCS: 87015; 87149; 87206 ==

== ENCOUNTER → 2021-11-13 | Outpatient (CLI) | payer MEDICARE, OTHER ==
[~2021-11-13] VITALS: Ht 160 cm; Wt 56.0 kg
[2021-11-13 10:15] VITALS: BP 137/71
== END | disposition home or self-care (01) ==
LOC: SRCNTR 09:59
PROVIDERS: ATTEND Internal Medicine Critical Care Medicine
DX: J44.1 Chronic obstructive pulmonary disease with (acute) exacerbation (principal); I10 Essential (primary) hypertension; A15.0 Tuberculosis of lung; R91.8 Other nonspecific abnormal finding of lung field; F17.200 Nicotine dependence, unspecified, uncomplicated; Z95.1 Presence of aortocoronary bypass graft
CPT/HCPCS: G0463; Z7500

== ENCOUNTER → 2021-11-21 | Outpatient (CLI) | payer MEDICARE, OTHER ==
[2021-11-29 13:06] LABS: MTB PCR (NON-RESP. SOURCE SPUTUM
== END | disposition home or self-care (01) ==
LOC: LABMN 11:25
PROVIDERS: ATTEND Internal Medicine Critical Care Medicine
DX: A31.0 Pulmonary mycobacterial infection (principal)
CPT/HCPCS: 87556; 87566

== ENCOUNTER → 2021-11-29 | Outpatient (CLI) | payer MEDICARE, OTHER ==
[~2021-11-29] VITALS: Ht 160 cm; Wt 54.5 kg
[2021-11-29 10:25] VITALS: BP 160/88
== END | disposition home or self-care (01) ==
LOC: SRCNTR 09:46
PROVIDERS: ATTEND Internal Medicine Critical Care Medicine
DX: I10 Essential (primary) hypertension (principal); J44.9 Chronic obstructive pulmonary disease, unspecified; F17.200 Nicotine dependence, unspecified, uncomplicated; R91.8 Other nonspecific abnormal finding of lung field
CPT/HCPCS: G0463

== ENCOUNTER → 2021-11-29 | Outpatient (CLI) | payer MEDICARE, MEDICAID | END | disposition home or self-care (01) | LOC: RADMN 09:11 | PROVIDERS: ATTEND Internal Medicine Critical Care Medicine | DX: A31.0 Pulmonary mycobacterial infection (principal); R91.1 Solitary pulmonary nodule | CPT/HCPCS: 71250 ==

== ENCOUNTER → 2022-01-03 | Outpatient (CLI) | payer MEDICARE, OTHER ==
[~2022-01-03] VITALS: Ht 160 cm; Wt 54.5 kg
[2022-01-03 10:01] VITALS: BP 136/87
== END | disposition home or self-care (01) ==
LOC: SRCNTR 09:45
PROVIDERS: ATTEND Internal Medicine Critical Care Medicine
DX: Z09 Encounter for follow-up examination after completed treatment for conditions other than malignant neoplasm (principal); I10 Essential (primary) hypertension; J45.909 Unspecified asthma, uncomplicated; R91.8 Other nonspecific abnormal finding of lung field; F17.200 Nicotine dependence, unspecified, uncomplicated
CPT/HCPCS: G0463

== ENCOUNTER → 2022-01-22 | Outpatient (CLI) | payer MEDICARE, OTHER ==
[2022-01-22 12:27] LABS: ALANINE AMINOTRANSFERASE 21 U/L (12-78); ALBUMIN 3.6 g/dL (3.4-5.0); ALKALINE PHOSPHATASE 124 U/L (46-116); ANION GAP 8 mmol/L (8-16); ASPARTATE AMINOTRANSFERASE 21 U/L (15-37); BILIRUBIN,DIRECT < 0.05 mg/dL (0.00-0.20); BILIRUBIN,TOTAL 0.2 mg/dL (0.1-1.0); CALCIUM, TOTAL 9.5 mg/dL (8.8-10.5); CARBON DIOXIDE 30 mmol/L (22-29); CHLORIDE 102 mmol/L (98-107); CREATININE 0.63 mg/dL (0.60-1.30); GLOMERULAR FILTR. RATE CALC > 60 mL/min (>60); GLUCOSE,RANDOM 82 mg/dL (70-110); POTASSIUM 3.7 mmol/L (3.5-5.1); SODIUM SERUM 140 mmol/L (136-145); TOTAL PROTEIN, SERUM 7.4 g/dL (6.4-8.2); UREA NITROGEN, BLOOD 17 mg/dL (7-18)
== END | disposition home or self-care (01) ==
LOC: LABPV 11:01
PROVIDERS: ATTEND Internal Medicine Critical Care Medicine
DX: A31.0 Pulmonary mycobacterial infection (principal)
CPT/HCPCS: 80053; 82248

== ENCOUNTER → 2022-01-30 | Outpatient (CLI) | payer MEDICARE, OTHER ==
[~2022-01-30] VITALS: Ht 162.6 cm; Wt 55.2 kg
[~2022-01-30] MED LIST changes: +HYDR-4870 PO; -HYDR25TA2 PO
[2022-01-30 10:09] VITALS: BP 141/73
== END | disposition home or self-care (01) ==
LOC: SRCNTR 09:49
PROVIDERS: ATTEND Internal Medicine Critical Care Medicine
DX: Z09 Encounter for follow-up examination after completed treatment for conditions other than malignant neoplasm (principal); I10 Essential (primary) hypertension; J44.9 Chronic obstructive pulmonary disease, unspecified; F17.200 Nicotine dependence, unspecified, uncomplicated
CPT/HCPCS: G0463

== ENCOUNTER → 2022-03-19 | Outpatient (CLI) | payer MEDICARE, OTHER ==
[~2022-03-19] VITALS: Ht 162.6 cm; Wt 53.2 kg
[~2022-03-19] MED LIST changes: -HYDR-4870 PO; +HYDR25TA2 PO
[2022-03-19 10:34] VITALS: BP 145/66
== END | disposition home or self-care (01) ==
LOC: SRCNTR 09:45
PROVIDERS: ATTEND Internal Medicine Critical Care Medicine
DX: I10 Essential (primary) hypertension (principal); J44.1 Chronic obstructive pulmonary disease with (acute) exacerbation; R91.8 Other nonspecific abnormal finding of lung field; F17.200 Nicotine dependence, unspecified, uncomplicated
CPT/HCPCS: G0463; Z7500

== ENCOUNTER → 2022-03-28 | Outpatient (CLI) | payer MEDICARE, OTHER ==
[~2022-03-28] VITALS: Ht 162.6 cm; Wt 51.8 kg
[2022-03-28 14:06] VITALS: BP 150/74
== END | disposition home or self-care (01) ==
LOC: SRCNTR 13:38
PROVIDERS: ATTEND Internal Medicine Infectious Disease
DX: A31.0 Pulmonary mycobacterial infection (principal)
CPT/HCPCS: G0463; Z7500

== ENCOUNTER → 2022-05-01 | Outpatient (CLI) | payer MEDICARE, OTHER ==
[2022-05-01 12:10] LABS: ALANINE AMINOTRANSFERASE 17 U/L (12-78); ALBUMIN 3.5 g/dL (3.4-5.0); ALKALINE PHOSPHATASE 120 U/L (46-116); ANION GAP 7 mmol/L (8-16); ASPARTATE AMINOTRANSFERASE 18 U/L (15-37); BILIRUBIN,TOTAL 0.5 mg/dL (0.1-1.0); CALCIUM, TOTAL 9.1 mg/dL (8.8-10.5); CARBON DIOXIDE 29 mmol/L (22-29); CHLORIDE 103 mmol/L (98-107); CREATININE 0.73 mg/dL (0.60-1.30); GLUCOSE,RANDOM 88 mg/dL (70-110); POTASSIUM 3.8 mmol/L (3.5-5.1); SODIUM SERUM 139 mmol/L (136-145); TOTAL PROTEIN, SERUM 7.2 g/dL (6.4-8.2); UREA NITROGEN, BLOOD 17 mg/dL (7-18)
[2022-05-01 12:11] LABS: GLOMERULAR FILTR. RATE CALC > 60 mL/min (>60)
== END | disposition home or self-care (01) ==
LOC: LABMN 11:05
PROVIDERS: ATTEND Internal Medicine Critical Care Medicine
DX: Z01.89 Encounter for other specified special examinations (principal)
CPT/HCPCS: 80053

== ENCOUNTER → 2022-05-20 | Outpatient (CLI) | payer MEDICARE, OTHER ==
[2022-05-20 13:35] VITALS: BP 129/69
== END | disposition home or self-care (01) ==
LOC: SRCNTR 12:31
PROVIDERS: ATTEND Internal Medicine Critical Care Medicine
DX: J44.1 Chronic obstructive pulmonary disease with (acute) exacerbation (principal); I10 Essential (primary) hypertension; Z87.891 Personal history of nicotine dependence; Z82.49 Family history of ischemic heart disease and other diseases of the circulatory system; Z82.5 Family history of asthma and other chronic lower respiratory diseases; Z79.82 Long term (current) use of aspirin; Z79.899 Other long term (current) drug therapy; Z98.890 Other specified postprocedural states
CPT/HCPCS: G0463

== ENCOUNTER → 2022-07-07 | Outpatient (CLI) | payer MEDICARE, OTHER ==
[~2022-07-07] MED LIST changes: +ATOR10TA PO; -ATOR10TA84 PO
== END | disposition home or self-care (01) ==
LOC: LABMN 10:13
PROVIDERS: ATTEND Internal Medicine Pulmonary Disease
DX: A31.2 Disseminated mycobacterium avium-intracellulare complex (DMAC) (principal)
CPT/HCPCS: 87015; 87206

== ENCOUNTER → 2022-07-22 | Outpatient (CLI) | payer MEDICARE, OTHER ==
[~2022-07-22] VITALS: Ht 162.6 cm; Wt 56.8 kg
[2022-07-22 13:18] VITALS: BP 122/61
== END | disposition home or self-care (01) ==
LOC: SRCNTR 12:06
PROVIDERS: ATTEND Internal Medicine Pulmonary Disease
DX: I10 Essential (primary) hypertension (principal); J45.909 Unspecified asthma, uncomplicated
CPT/HCPCS: G0463

== ENCOUNTER → 2022-09-11 | Outpatient (CLI) | payer MEDICARE, OTHER | END | disposition home or self-care (01) | LOC: RADMN 12:57 | PROVIDERS: ATTEND Internal Medicine Pulmonary Disease | DX: J98.4 Other disorders of lung (principal); J92.9 Pleural plaque without asbestos; A31.2 Disseminated mycobacterium avium-intracellulare complex (DMAC); J43.9 Emphysema, unspecified; R91.8 Other nonspecific abnormal finding of lung field; R16.0 Hepatomegaly, not elsewhere classified; I25.10 Atherosclerotic heart disease of native coronary artery without angina pectoris; R06.02 Shortness of breath | CPT/HCPCS: 71250 ==

== ENCOUNTER → 2022-09-24 | Outpatient (CLI) | payer MEDICARE, OTHER ==
[~2022-09-24] VITALS: Ht 162.6 cm; Wt 54.8 kg
[2022-09-24 11:13] VITALS: BP 126/68
== END | disposition home or self-care (01) ==
LOC: SRCNTR 10:39
PROVIDERS: ATTEND Internal Medicine Pulmonary Disease
DX: I10 Essential (primary) hypertension (principal); J44.1 Chronic obstructive pulmonary disease with (acute) exacerbation; Z87.891 Personal history of nicotine dependence
CPT/HCPCS: G0463; Z7500

== ENCOUNTER → 2023-01-02 | Outpatient (CLI) | payer MEDICARE, OTHER ==
[~2023-01-02] VITALS: Ht 162.6 cm; Wt 52.5 kg
[~2023-01-02] MED LIST changes: +HYDR-4870 PO; -HYDR25TA2 PO
[2023-01-02 12:43] VITALS: BP 116/57
== END | disposition home or self-care (01) ==
LOC: SRCNTR 11:59
PROVIDERS: ATTEND Internal Medicine Pulmonary Disease
DX: I10 Essential (primary) hypertension (principal); J45.909 Unspecified asthma, uncomplicated
CPT/HCPCS: G0463; Z7500

== ENCOUNTER → 2023-01-15 | Outpatient (CLI) | payer MEDICARE, OTHER ==
[~2023-01-15] MED LIST changes: -HYDR-4870 PO; +HYDR25TA2 PO
[2023-01-15 11:18] LABS: ALANINE AMINOTRANSFERASE 18 U/L (12-78); ALBUMIN 3.8 g/dL (3.4-5.0); ALKALINE PHOSPHATASE 111 U/L (46-116); ANION GAP 4 mmol/L (8-16); ASPARTATE AMINOTRANSFERASE 21 U/L (15-37); BILIRUBIN,TOTAL 0.2 mg/dL (0.1-1.0); CALCIUM, TOTAL 9.3 mg/dL (8.8-10.5); CARBON DIOXIDE 34 mmol/L (22-29); CHLORIDE 103 mmol/L (98-107); CREATININE 0.77 mg/dL (0.60-1.30); GLOMERULAR FILTR. RATE CALC > 60 mL/min (>60); GLUCOSE,RANDOM 102 mg/dL (70-110); POTASSIUM 3.5 mmol/L (3.5-5.1); SODIUM SERUM 141 mmol/L (136-145); TOTAL PROTEIN, SERUM 7.7 g/dL (6.4-8.2)
== END | disposition home or self-care (01) ==
LOC: LABMN 10:21
PROVIDERS: ATTEND Internal Medicine Pulmonary Disease
DX: A31.2 Disseminated mycobacterium avium-intracellulare complex (DMAC) (principal)
CPT/HCPCS: 80053; 87015; 87206; 36415-L1; 36415-TC

== ENCOUNTER → 2023-02-04 | Outpatient (CLI) | payer MEDICARE, OTHER ==
[~2023-02-04] VITALS: Ht 162.6 cm; Wt 52.2 kg
[2023-02-04 10:33] VITALS: BP 126/76
== END | disposition home or self-care (01) ==
LOC: SRCNTR 10:22
PROVIDERS: ATTEND Internal Medicine Pulmonary Disease
DX: J44.1 Chronic obstructive pulmonary disease with (acute) exacerbation (principal); I10 Essential (primary) hypertension; F17.200 Nicotine dependence, unspecified, uncomplicated
CPT/HCPCS: G0463; Z7500

== ENCOUNTER → 2023-02-19 | Outpatient (CLI) | payer MEDICARE, OTHER | END | disposition home or self-care (01) | LOC: RADMN 12:38 | PROVIDERS: ATTEND Internal Medicine Pulmonary Disease | DX: K44.9 Diaphragmatic hernia without obstruction or gangrene (principal); A31.2 Disseminated mycobacterium avium-intracellulare complex (DMAC); R16.0 Hepatomegaly, not elsewhere classified; M47.814 Spondylosis without myelopathy or radiculopathy, thoracic region | CPT/HCPCS: 71250 ==

== ENCOUNTER → 2023-04-06 | Outpatient (CLI) | payer MEDICARE, OTHER ==
[~2023-04-06] VITALS: Ht 162.6 cm; Wt 53.0 kg
[2023-04-06 10:39] VITALS: BP 147/78; PULSE 85; RESP 18; TEMP 97.9; O2SAT 97
== END | disposition home or self-care (01) ==
LOC: SRCNTR 10:11
PROVIDERS: ATTEND Internal Medicine Pulmonary Disease
DX: J45.909 Unspecified asthma, uncomplicated (principal); I10 Essential (primary) hypertension
CPT/HCPCS: G0463; Z7500

== ENCOUNTER → 2023-04-17 | Outpatient (CLI) | payer MEDICARE, OTHER | END | disposition home or self-care (01) | LOC: LABMN 09:31 | PROVIDERS: ATTEND Internal Medicine Pulmonary Disease | DX: A31.2 Disseminated mycobacterium avium-intracellulare complex (DMAC) (principal) | CPT/HCPCS: 87015; 87206 ==

== ENCOUNTER 2023-07-01 20:04 | Emergency (ER) | payer MEDICARE, OTHER ==
[~2023-07-01] VITALS: Ht 162.6 cm; Wt 56.0 kg
[2023-07-01 20:12] VITALS: TEMP 98.2
[2023-07-01 20:47] LABS: EOSINOPHILS % (AUTO) 3.1 % (1.0-6.0); HEMATOCRIT 42.1 % (36-46); LYMPHOCYTES # (AUTO) 1.8 K/uL (1.0-4.8); LYMPHOCYTES % (AUTO) 21.2 % (22.0-44.0); MEAN CORPUSCULAR HEMOGLOBIN 30.2 pg (26.0-34.0); MEAN CORPUSCULAR HGB CONC 33.2 G/dL (31.0-37.0); MEAN CORPUSCULAR VOLUME 91 fL (80-100); MONOCYTES # (AUTO) 0.6 K/uL (0.1-1.0); MONOCYTES % (AUTO) 7.7 % (2.0-9.0); NEUTROPHILS # (AUTO) 5.5 K/uL (1.8-7.7); PLATELET COUNT (AUTO) 304 K/uL (150-450); RED BLOOD CELL COUNT(AUTO) 4.63 MIL/uL (4.00-5.20); RED CELL DISTRIBUTION WIDTH 13.1 % (11.5-14.5); WHITE BLOOD COUNT (AUTO) 8.2 K/uL (4.5-11.0)
[2023-07-01 20:52] VITALS: BP 144/80; PULSE 108; RESP 20
[2023-07-01 21:02] LABS: CALCIUM, TOTAL 10.1 mg/dL (8.8-10.5); CREATININE 1.15 mg/dL (0.60-1.30); POTASSIUM 3.8 mmol/L (3.5-5.1)
[2023-07-01 21:07] LABS: BILIRUBIN,TOTAL 0.3 mg/dL (0.1-1.0)
[2023-07-01 21:08] LABS: ALBUMIN 3.7 g/dL (3.4-5.0); TOTAL PROTEIN, SERUM 7.6 g/dL (6.4-8.2)
[2023-07-01] MEDS ORDERED: IPRATROPIUM BROMIDE 0.5 MG/2.5 ML NEB SOLUTION NEB ONE (21:30)
[2023-07-01] MEDS ORDERED: ALBUTEROL SULFATE 2.5 MG/0.5 ML NEB SOLUTION NEB ONE (21:30)
[2023-07-01] MEDS ORDERED: PB/HYOSCY/ATR/SCOP/LIDO/MAALOX 55 ML BOTTLE PO ONE (22:45)
== END 2023-07-01 23:37 | disposition home or self-care (01) ==
LOC: EMS 20:08
DX: S27.818A Other injury of esophagus (thoracic part), initial encounter (principal); J44.9 Chronic obstructive pulmonary disease, unspecified; I10 Essential (primary) hypertension; Z87.891 Personal history of nicotine dependence; X58.XXXA Exposure to other specified factors, initial encounter; Y93.89 Activity, other specified; Y92.89 Other specified places as the place of occurrence of the external cause; Y99.8 Other external cause status
CPT/HCPCS: 70490; 71045; 80053; 85025; 94640; 99284; 36415-L1; 36415-TC; J7613

== ENCOUNTER → 2023-08-13 | Outpatient (CLI) | payer MEDICARE, OTHER ==
[~2023-08-13] VITALS: Ht 162.6 cm; Wt 54.0 kg
[2023-08-13 10:22] VITALS: BP 125/69; PULSE 88; RESP 18; TEMP 98.1; O2SAT 98
== END | disposition home or self-care (01) ==
LOC: SRCNTR 10:09
PROVIDERS: ATTEND Internal Medicine Pulmonary Disease
DX: J44.1 Chronic obstructive pulmonary disease with (acute) exacerbation (principal); I10 Essential (primary) hypertension; F17.200 Nicotine dependence, unspecified, uncomplicated
CPT/HCPCS: G0463

== ENCOUNTER → 2023-10-07 | Outpatient (CLI) | payer MEDICARE, OTHER | END | disposition home or self-care (01) | LOC: RADMN 09:27 | PROVIDERS: ATTEND Internal Medicine Pulmonary Disease | DX: R91.8 Other nonspecific abnormal finding of lung field (principal); J43.9 Emphysema, unspecified; R07.9 Chest pain, unspecified | CPT/HCPCS: 71250 ==

== ENCOUNTER → 2023-12-24 | Outpatient (CLI) | payer MEDICARE, OTHER ==
[~2023-12-24] VITALS: Ht 162.6 cm; Wt 57.0 kg
[2023-12-24 11:01] VITALS: BP 139/75; PULSE 70; RESP 22; TEMP 98.1; O2SAT 98
== END | disposition home or self-care (01) ==
LOC: SRCNTR 10:41
PROVIDERS: ATTEND Internal Medicine Pulmonary Disease
DX: J44.1 Chronic obstructive pulmonary disease with (acute) exacerbation (principal); I10 Essential (primary) hypertension; R91.1 Solitary pulmonary nodule; A15.0 Tuberculosis of lung; Z87.891 Personal history of nicotine dependence; Z79.899 Other long term (current) drug therapy
CPT/HCPCS: G0463

== ENCOUNTER → 2024-01-07 | Outpatient (CLI) | payer MEDICARE, OTHER | END | disposition home or self-care (01) | LOC: RADMN 12:37 | PROVIDERS: ATTEND Internal Medicine Pulmonary Disease | DX: R91.1 Solitary pulmonary nodule (principal) | CPT/HCPCS: 71250 ==

== ENCOUNTER → 2024-01-21 | Outpatient (CLI) | payer MEDICARE, OTHER ==
[~2024-01-21] VITALS: Ht 162.6 cm; Wt 57.0 kg
[2024-01-21 10:35] VITALS: BP 125/69; PULSE 84; RESP 20; TEMP 98.1; O2SAT 97
== END | disposition home or self-care (01) ==
LOC: SRCNTR 10:03
PROVIDERS: ATTEND Internal Medicine Pulmonary Disease
DX: J44.1 Chronic obstructive pulmonary disease with (acute) exacerbation (principal); I10 Essential (primary) hypertension; R91.1 Solitary pulmonary nodule; Z87.891 Personal history of nicotine dependence; I34.81 Nonrheumatic mitral (valve) annulus calcification; Z79.899 Other long term (current) drug therapy
CPT/HCPCS: G0463; Z7500

== ENCOUNTER 2024-09-03 17:17 | Emergency (ER) | payer MEDICARE, OTHER ==
[~2024-09-03] VITALS: Ht 162.6 cm; Wt 52.7 kg
[2024-09-03 17:32] VITALS: TEMP 98.6
[2024-09-03 18:14] LABS: APPEARANCE,URINE CLEAR (CLEAR); BILIRUBIN,URINE NEGATIVE (NEGATIVE); COLOR,URINE LIGHT YELLOW (YELLOW); GLUCOSE, URINE (UA) NEGATIVE (NEGATIVE); KETONES,URINE NEGATIVE (NEGATIVE); LEUKOCYTE ESTERASE ,URINE NEGATIVE (NEGATIVE); NITRATE,URINE NEGATIVE (NEGATIVE); OCCULT BLOOD,URINE LARGE (NEGATIVE); PROTEIN,URINE 30-70 mg/dL (NEGATIVE); SPECIFIC GRAVITIY, URINE 1.015 (1.003-1.030); UROBILINOGEN,URINE <=1.0 mg/dL (<=1.0)
[2024-09-03 18:46] LABS: BACTERIA,URINE Rare /HPF (None Seen); RBC,URINE 51-100 /HPF (0-2); SQUAMOUS EPITHELIAL CELL,UR Few /LPF (None Seen)
[2024-09-03] MEDS ORDERED: ESTR42.510 VG (18:46)
[2024-09-03] MEDS ORDERED: ATOR20TA65 PO (18:46)
[2024-09-03] MEDS ORDERED: MONT-40 PO (18:46)
[2024-09-03] MEDS ORDERED: IPRA4AER IH (18:46)
[2024-09-03 18:54] VITALS: PULSE 108; RESP 24; O2SAT 92
[2024-09-03] MEDS: IPRATROPIUM BROMIDE 0.5 MG/2.5 ML NEB SOLUTION NEB ONE (18:54)
[2024-09-03] MEDS: ALBUTEROL SULFATE 2.5 MG/0.5 ML NEB SOLUTION NEB ONE ×2 (18:54→21:51)
[2024-09-03 19:09] VITALS: PULSE 111; RESP 22; O2SAT 98
[2024-09-03 19:12] LABS: BASOPHILS % (AUTO) 0.8 % (0.0-2.0); EOSINOPHILS % (AUTO) 0.9 % (1.0-6.0); HEMATOCRIT 42.1 % (36-46); HEMOGLOBIN 14.1 g/dL (12.0-16.0); LYMPHOCYTES # (AUTO) 1.5 K/uL (1.0-4.8); LYMPHOCYTES % (AUTO) 20.2 % (22.0-44.0); MEAN CORPUSCULAR HEMOGLOBIN 30.2 pg (26.0-34.0); MEAN CORPUSCULAR HGB CONC 33.4 G/dL (31.0-37.0); MEAN CORPUSCULAR VOLUME 90 fL (80-100); MONOCYTES # (AUTO) 0.8 K/uL (0.1-1.0); MONOCYTES % (AUTO) 10.9 % (2.0-9.0); NEUTROPHILS # (AUTO) 4.8 K/uL (1.8-7.7); NEUTROPHILS % (AUTO) 67.2 % (40.0-70.0); PLATELET COUNT (AUTO) 446 K/uL (150-450); RED BLOOD CELL COUNT(AUTO) 4.66 MIL/uL (4.00-5.20); WHITE BLOOD COUNT (AUTO) 7.2 K/uL (4.5-11.0)
[2024-09-03 19:23] LABS: ALANINE AMINOTRANSFERASE 16 U/L (12-78); ALBUMIN 3.6 g/dL (3.4-5.0); ALKALINE PHOSPHATASE 111 U/L (46-116); ANION GAP 7 mmol/L (8-16); ASPARTATE AMINOTRANSFERASE 21 U/L (15-37); BILIRUBIN,TOTAL 0.6 mg/dL (0.1-1.0); CARBON DIOXIDE 34 mmol/L (22-29); CHLORIDE 98 mmol/L (98-107); CREATININE 0.96 mg/dL (0.60-1.30); GLOMERULAR FILTR. RATE CALC > 60 mL/min (>60); GLUCOSE,RANDOM 99 mg/dL (70-110); SODIUM SERUM 140 mmol/L (136-145); TOTAL PROTEIN, SERUM 8.3 g/dL (6.4-8.2); TROPONIN I-HIGH SENSITIVITY 13 ng/L (<51); UREA NITROGEN, BLOOD 20 mg/dL (7-18)
[2024-09-03 19:28] LABS: B-TYPE NATRIURETIC PEPTIDE 37 pg/mL (0-100)
[2024-09-03] MEDS: AZITHROMYCIN 500 MG TABLET PO ONE (19:40)
[2024-09-03] MEDS: MethylPREDNISolone SOD SUCC 125 MG/2 ML VIAL IVP ONE (19:40)
[2024-09-03] MEDS: POTASSIUM CHLORIDE 20 MEQ ER TABLET PO ONE (20:28)
[2024-09-03] MEDS: ONDANSETRON HCL 4 MG/2 ML VIAL IVP ONE (20:36)
[2024-09-03 21:31] VITALS: BP 118/63; O2SAT 93
[2024-09-03] MEDS ORDERED: 0.9% SODIUM CHLORIDE 5 ML NEB SOLUTION NEB ONE (21:50)
[2024-09-03 21:51] VITALS: PULSE 104; RESP 20; O2SAT 94
[2024-09-03 22:06] VITALS: PULSE 103; RESP 20; O2SAT 98
[2024-09-03] MEDS ORDERED: PRED-554 PO (22:26)
[2024-09-03] MEDS ORDERED: AZIT250T9 PO (22:26)
[2024-09-03] MEDS ORDERED: LIDO700A15 TP (22:34)
== END 2024-09-03 23:07 | disposition home or self-care (01) ==
LOC: EMS 17:17
DX: J44.1 Chronic obstructive pulmonary disease with (acute) exacerbation (principal); I10 Essential (primary) hypertension; J43.9 Emphysema, unspecified
CPT/HCPCS: 99285; 96374; 71045; 96375; 80048; 80076; 81001; 83880; 84484; 85025; 85379; 36415; 94640; 93005; J0456; J2919; J2405; J7613

== ENCOUNTER → 2024-11-02 | Outpatient (CLI) | payer MEDICARE, OTHER ==
[~2024-11-02] MED LIST changes: -ASPI-1450 PO; -ATOR10TA PO; +ATOR20TA65 PO; +ESTR42.510 VG; +LIDO700A15 TP; +MONT-40 PO; -OMEG1CAP12 PO; +PRED-554 PO
== END | disposition home or self-care (01) ==
LOC: SRCNTR 13:49
PROVIDERS: ATTEND Internal Medicine Pulmonary Disease
DX: I10 Essential (primary) hypertension (principal); B38.9 Coccidioidomycosis, unspecified; I70.0 Atherosclerosis of aorta; J43.2 Centrilobular emphysema; J44.1 Chronic obstructive pulmonary disease with (acute) exacerbation; J47.9 Bronchiectasis, uncomplicated; K44.9 Diaphragmatic hernia without obstruction or gangrene; M47.814 Spondylosis without myelopathy or radiculopathy, thoracic region; Z46.82 Encounter for fitting and adjustment of non-vascular catheter; Z79.51 Long term (current) use of inhaled steroids; Z79.52 Long term (current) use of systemic steroids; Z79.899 Other long term (current) drug therapy; Z82.49 Family history of ischemic heart disease and other diseases of the circulatory system
CPT/HCPCS: G0463; Z7500

== ENCOUNTER → 2025-04-11 | Outpatient (CLI) | payer MEDICARE, OTHER ==
[~2025-04-11] MED LIST changes: -BUDE10.2 IH; +BUDE10.26 IH; +LIDO-57 TP; -LIDO700A15 TP
== END | disposition home or self-care (01) ==
LOC: SRCNTR 13:38
PROVIDERS: ATTEND Internal Medicine Pulmonary Disease
DX: I10 Essential (primary) hypertension (principal); B38.9 Coccidioidomycosis, unspecified; C67.9 Malignant neoplasm of bladder, unspecified; I25.10 Atherosclerotic heart disease of native coronary artery without angina pectoris; I70.0 Atherosclerosis of aorta; J43.2 Centrilobular emphysema; J44.1 Chronic obstructive pulmonary disease with (acute) exacerbation; J47.9 Bronchiectasis, uncomplicated; K44.9 Diaphragmatic hernia without obstruction or gangrene; M47.814 Spondylosis without myelopathy or radiculopathy, thoracic region; N13.30 Unspecified hydronephrosis; N63.25 Unspecified lump in the left breast, overlapping quadrants; Z45.2 Encounter for adjustment and management of vascular access device; Z46.82 Encounter for fitting and adjustment of non-vascular catheter; Z79.51 Long term (current) use of inhaled steroids; Z79.52 Long term (current) use of systemic steroids; Z79.899 Other long term (current) drug therapy; Z82.49 Family history of ischemic heart disease and other diseases of the circulatory system
CPT/HCPCS: Q3014